=== PATIENT | female | born 1995 | race African-American/Black ===

== ENCOUNTER 2020-01-06 19:38 | Emergency (ER) | payer MEDICAID ==
[~2020-01-06] VITALS: Ht 170.2 cm; Wt 77.0 kg
[2020-01-06 19:42] VITALS: BP 129/85
[2020-01-06] MEDS ORDERED: ACETAMINOPHEN 325MG TABLET PO STA (20:12)
[2020-01-06] MEDS ORDERED: ONDANSETRON 4MG ODT PO ONE (21:45)
== END 2020-01-06 22:05 | disposition home or self-care (01) ==
LOC: ER 19:38 → EDBD 19:38 → ER 22:05
DX: S06.0X9A Concussion with loss of consciousness of unspecified duration, initial encounter (principal); R42 Dizziness and giddiness; Y04.0XXA Assault by unarmed brawl or fight, initial encounter; Y93.89 Activity, other specified; Y92.89 Other specified places as the place of occurrence of the external cause; Y99.8 Other external cause status
CPT/HCPCS: 81025; 93005; 99283